=== PATIENT | male | born 1980 | race African-American/Black ===

== ENCOUNTER 2016-12-08 13:04 | Emergency (ER) | payer MEDICAID ==
[~2016-12-08] VITALS: Ht 190.5 cm; Wt 87.0 kg
[2016-12-08 13:09] VITALS: BP 125/75
[2016-12-08] MEDS ORDERED: LIDOCAINE HCL 1% 20ML VIAL (Pyxis) INJ MC ONE (15:45)
[2016-12-08] MEDS ORDERED: BACITRACIN ZINC OINT UDPKT TOP ONE (15:45)
== END 2016-12-08 18:07 | disposition home or self-care (01) ==
LOC: ER 13:05
DX: S61.412A Laceration without foreign body of left hand, initial encounter (principal); F12.10 Cannabis abuse, uncomplicated; F17.200 Nicotine dependence, unspecified, uncomplicated; X58.XXXA Exposure to other specified factors, initial encounter; Y93.G3 Activity, cooking and baking; Y99.8 Other external cause status; Y92.89 Other specified places as the place of occurrence of the external cause
CPT/HCPCS: 12002; 99283; J3490; Z7610